=== PATIENT | male | born 1995 | race African-American/Black ===

== ENCOUNTER 2018-10-22 13:11 | Emergency (ER) | payer OTHER ==
[~2018-10-22] VITALS: Ht 182.9 cm; Wt 90.9 kg
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
[2018-10-22 18:56] VITALS: BP 136/88
--- NOTE | 2018-10-23 09:46 | REP ---
RIGHT SHOULDER, THREE VIEWS: There is no evidence of an acute fracture, dislocation or intrinsic bone disease. IMPRESSION: No fracture or dislocation. Electronically Signed by Quincy Cueto MD 10/23/2018 11:13 P
== END 2018-10-22 19:41 | disposition home or self-care (01) ==
LOC: M ED 13:11
DX: S16.1XXA Strain of muscle, fascia and tendon at neck level, initial encounter (principal); S06.0X0A Concussion without loss of consciousness, initial encounter; S46.911A Strain of unspecified muscle, fascia and tendon at shoulder and upper arm level, right arm, initial encounter; M85.00 Fibrous dysplasia (monostotic), unspecified site; Y04.8XXA Assault by other bodily force, initial encounter; Y92.524 Gas station as the place of occurrence of the external cause; Y93.9 Activity, unspecified; Y99.9 Unspecified external cause status; Z72.0 Tobacco use